=== PATIENT | female | born 1985 ===

== ENCOUNTER 2017-08-21 11:35 | Inpatient (IN) ==
[2017-08-21] MEDS ORDERED: ONDANSETRON 4 MG/2 ML VIAL IV STA (12:05)
[2017-08-21] MEDS ORDERED: HYDROmorphone 2 MG/1 ML VIAL IV STA (12:05)
[2017-08-21] MEDS ORDERED: ONDANSETRON 4 MG/2 ML VIAL ONE (12:06)
[2017-08-21] MEDS ORDERED: HYDROmorphone 2 MG/1 ML VIAL ONE (12:07)
[2017-08-21 16:26] LABS: Apearance,Urine Slightly Hazy (Clear); Bacteria,Urine Occasional /HPF (Few); Bilirubin,Urine Negative (Negative); Blood, Urine Moderate mg/dL (Negative); Glucose,Urine (UA) Negative (Negative); Ketones,Urine Negative (Negative); Mucus,Urine Occasional /LPF (Occasional); Nitrite,Urine Negative (Negative); Protein,Urine Negative; RBC,Urine 14 /HPF (0-4); Squamous Epithelial Cell,Urine Occasional /HPF (0-10); Urine Color Yellow (Yellow); Urine Specific Gravity 1.013 (1.001-1.035); WBC,Urine 2 /HPF (0-6)
[2017-08-21] MEDS ORDERED: PROMETHAZINE 25 MG/1 ML VIAL IM PRN (16:26)
[2017-08-21] MEDS ORDERED: TEMAZEPAM 15 MG CAPSULE PO PRN (16:26)
[2017-08-21] MEDS ORDERED: MAGNESIUM HYDROXIDE SUSP 30 ML UDCUP PO PRN ×2 (16:26→16:45)
[2017-08-21] MEDS ORDERED: ALUMINUM/MAGNES/SIMETH MAX STR 30 ML UDCUP PO PRN (16:26)
[2017-08-21] MEDS ORDERED: ONDANSETRON 4 MG/2 ML VIAL IV PRN (16:45)
[2017-08-21 17:18] LABS: Basophils % 0.1 % (0.0-0.8); Eosinophils % 0.2 % (0.00-10.9); Hematocrit 33.2 VOL% (35.7-47.0); Immature Granulocytes % 0.3 %; Immature Granulocytes Absolute 0.03 #; Lymphocytes # 1.5 10*3/uL (1.4-4.0); Lymphocytes % 13.5 % (21.3-54.2); Mean Corpuscular HGB Conc 30.1 GM/DL (32-36); Mean Corpuscular Hemoglobin 22 PG (27-34); Mean Corpuscular Volume 73.6 FL (87-102); Mean Platelet Volume 9.3 FL (9.6-12.0); Monocytes # 1.1 10*3/uL (0.11-0.8); Neutrophils # 8.6 10*3/uL (1.4-7.4); Neutrophils % 75.9 % (38.7-73.9); Platelet Count 325 T/CUMM (130-400); Red Blood Count 4.51 MC/CUMM (3.8-5.5); White Blood Count 11.3 T/CUMM (4-12)
[2017-08-21] MEDS: LACTATED RINGERS 1,000 ML IV SCH (17:20)
[2017-08-21] MEDS: DEXTROSE 5% NACL 0.45% 1,000 ML IV SCH (17:20)
[2017-08-21] MEDS ORDERED: INFLUENZA VIRUS VACCINE 0.5 ML SYRINGE IM ONE (17:36)
[2017-08-21 17:41] LABS: Albumin 3.1 G/DL (3.4-5.0); Bilirubin,Total 0.6 MG/DL (0.2-1.0); Calcium 7.8 MG/DL (8.5-10.1); Osmolality,Calculated 277.3 MOS/KG (273-304); Potassium 4.3 MMOL/L (3.5-5.1); Total Protein 7.3 G/DL (6.4-8.3)
[2017-08-21] MEDS: HYDROmorphone 2 MG/1 ML VIAL IV PRN (20:29)
[2017-08-21] MEDS: ONDANSETRON 4 MG/2 ML VIAL IV PRN (20:30)
[2017-08-22] MEDS: DEXTROSE 5% NACL 0.45% 1,000 ML IV SCH ×3 (02:43→23:35)
[2017-08-22] MEDS: ONDANSETRON 4 MG/2 ML VIAL IV PRN (02:45)
[2017-08-22] MEDS: HYDROmorphone 2 MG/1 ML VIAL IV PRN ×2 (02:46→05:57)
[2017-08-22] MEDS ORDERED: DIAZEPAM 5 MG TABLET PO ONE (06:00)
[2017-08-22] MEDS ORDERED: FAMOTIDINE 20 MG TABLET PO ONE (06:00)
[2017-08-22] MEDS ORDERED: ROPIVACAINE 0.5% 30 ML VIAL ONE (06:31)
[2017-08-22] MEDS ORDERED: fentaNYL 100 MCG/2 ML VIAL ONE ×2 (06:41→10:39)
[2017-08-22] MEDS ORDERED: MIDAZOLAM 2 MG/2 ML VIAL ONE (06:41)
[2017-08-22] MEDS ORDERED: ceFAZolin 2,000 MG in PREMIX 1 EACH IV ONE (08:00)
[2017-08-22] MEDS ORDERED: ceFAZolin 1,000 MG VIAL ONE (09:29)
[2017-08-22] MEDS ORDERED: KETOROLAC 15 MG/1 ML VIAL IV PRN (10:20)
[2017-08-22] MEDS ORDERED: MAGNESIUM HYDROXIDE SUSP 30 ML UDCUP PO PRN (10:20)
[2017-08-22] MEDS ORDERED: KETOROLAC 30 MG/1 ML VIAL ONE (10:39)
[2017-08-22] MEDS ORDERED: ACETAMINOPHEN 1,000 MG/100 ML VIAL IV ONE (10:39)
[2017-08-22] MEDS ORDERED: PROPOFOL 200 MG/20 ML VIAL IV ONE (10:39)
[2017-08-22] MEDS ORDERED: ONDANSETRON 4 MG/2 ML VIAL ONE (10:39)
[2017-08-22] MEDS ORDERED: DEXAMETHASONE 10 MG/1 ML VIAL ONE (10:40)
[2017-08-22] MEDS ORDERED: SEVOFLURANE 1 UNIT/15 MINUTE INH ONE (10:40)
[2017-08-22] MEDS: LACTATED RINGERS 1,000 ML IV SCH (12:30)
[2017-08-22] MEDS: ceFAZolin 1,000 MG in SYRINGE 1 EACH IV SCH ×2 (13:58→21:34)
[2017-08-23] MEDS: HYDROmorphone 2 MG/1 ML VIAL IV PRN ×2 (01:07→08:01)
[2017-08-23] MEDS: ceFAZolin 1,000 MG in SYRINGE 1 EACH IV SCH (05:48)
[2017-08-23] MEDS: LACTATED RINGERS 1,000 ML IV SCH (08:30)
[2017-08-23] MEDS: DEXTROSE 5% NACL 0.45% 1,000 ML IV SCH (08:45)
[2017-08-23 12:00] VITALS: BP 134/88
== END 2017-08-23 12:05 | disposition home or self-care (01) | DRG 512 ==
LOC: EDUNIT# → EDBD → N.ED 11:35 → N.EDINP 14:33 → N.3E 16:44
PROVIDERS: ADMIT Orthopaedic Surgery; ATTEND Orthopaedic Surgery